=== PATIENT | male | born 1930 | race Caucasian/White ===

== ENCOUNTER → 2018-02-20 | Outpatient (CLI) | payer MEDICARE, BC | LOC: M ONCR 12:34 | DX: C34.12 Malignant neoplasm of upper lobe, left bronchus or lung (principal) | CPT/HCPCS: G0463 ==

== ENCOUNTER 2018-02-26 09:42 | Outpatient (RCR) | payer MEDICARE, BC | END 2018-03-16 | LOC: M ONCR 09:42 | DX: C79.51 Secondary malignant neoplasm of bone (principal); C34.12 Malignant neoplasm of upper lobe, left bronchus or lung | CPT/HCPCS: 77307 ==

== ENCOUNTER → 2018-03-01 | Outpatient (CLI) | payer MEDICARE, BC ==
[~2018-03-01] MED LIST: PROHANCE 279.3MG/ML 15ML VIAL (A9576) As Ordered
[2018-03-01 09:41] LABS: HEMATOCRIT 35.8 % (42.0-52.0); HEMOGLOBIN 11.4 g/dl (13.5-17.5); MEAN CORPUSCULAR HEMOGLOBIN 28.3 pg (27.0-33.0); MEAN CORPUSCULAR HGB CONC 31.8 g/dl (32.0-36.5); MEAN CORPUSCULAR VOLUME 88.8 fl (80.0-96.0); PLATELET COUNT, AUTOMATED 240 10^3/uL (150-450); RED BLOOD COUNT 4.03 10^6/uL (4.30-6.10); RED CELL DISTRIBUTION WIDTH 16.9 % (11.5-14.5); WHITE BLOOD COUNT 8.9 10^3/uL (4.0-10.0)
[2018-03-01 10:01] LABS: BLOOD UREA NITROGEN 14 MG/DL (7-18)
[2018-03-01 10:01] LABS: CREATININE FOR GFR 0.81 MG/DL (0.70-1.30); GLOMERULAR FILTRATION RATE > 60.0 (>35)
== END ==
LOC: M LAB 08:56
DX: C34.90 Malignant neoplasm of unspecified part of unspecified bronchus or lung (principal); Z88.0 Allergy status to penicillin; Z88.1 Allergy status to other antibiotic agents; R93.0 Abnormal findings on diagnostic imaging of skull and head, not elsewhere classified
CPT/HCPCS: A9576

== ENCOUNTER 2018-03-20 10:13 | Outpatient (RCR) | payer MEDICARE, BC ==
[2018-02-21 15:31] VITALS: BP 115/69
--- NOTE | 2018-02-26 07:24 | MEDONC ---
NEW PATIENT VISIT DATE OF SERVICE: 02/21/2018 REASON FOR REFERRAL: Metastatic lung adenocarcinoma with left lung biopsy 01/2018 showing adenocarcinoma. PET scan from 02/2018 showing left upper lobe lung mass with mediastinal adenopathy and metastatic disease to the left hip. HISTORY OF PRESENT ILLNESS: Mr. Infante is an 87-year-old man who was having increasing shortness of breath and was admitted to [facility] for cardiac workup. A CT angiography study showed large mass in the anterior left lung suspicious for malignancy. There was also note of left hilar and mediastinal adenopathy. He had a left lung biopsy with pathology showing adenocarcinoma. He had a PET scan recently which showed metastatic disease to the left hip. He was referred to medical oncology for the above. He had an appointment with Dr. Blackman of radiation oncology yesterday and he was offered radiation therapy to his left hip. Symptomwise, Mr. Infante does not feel well. He has lost 20 to 25 pounds over the past two months after being treated for pneumonia. He reports no eye sight changes. He has soreness on the left side of his chest, particularly with increased breathing. He also has left hip pain at times for which he takes Tylenol once or twice a day. He has had difficulty swallowing with food sticking on the way down his throat. No urinary problems. No headaches. No dizziness. He has had regular bowel movements. PAST MEDICAL HISTORY: 1. Coronary artery disease. 2. Hypertension. PAST SURGICAL HISTORY: 1. Removal of right eye metal fragment. 2. In 1970, removal of right eye. 3. In 1983, abdominal hernia repair. 4. In 1996, cardiac bypass surgery. 5. In October 1998, colostomy. 6. In February 1999, reversal of colostomy. 7. Balloon dilatation of bowel stricture in 1999. 8. Removal of abdominal adhesions in 2012. 9. Cataract surgery left eye in 2011. 10. Skin cancer removal December 2016. ALLERGIES: - CEPHALOSPORINS - PENICILLIN MEDICATIONS: - atorvastatin - digoxin - famotidine - metoprolol - tamsulosin FAMILY HISTORY: His father had colon cancer. Sister had liver cancer. Another sister had bone cancer. PERSONAL/SOCIAL HISTORY: He is and lives by himself. His children have been taking turns assisting him with his day to day activities. He has been the past two years. 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 He retired in 1994. He does not smoke. He used to smoke 35 years ago for 18-20 years up to 1 pack per day. He drinks alcoholic beverages occasionally. PHYSICAL EXAMINATION: He weighed 71.2 kg. Blood pressure 115/69. Heart rate 94 per minute. Oxygen saturation 94% on room air. Temperature 97.6. He had pinkish conjunctivae, anicteric sclerae. No oral mucosal lesions. No palpable cervical lymph nodes. Lungs fair air entry. No rales, no rhonchi, no wheeze. S1, S2, regular. Abdomen soft, nontender, no guarding. Positive bowel sounds. Extremities - No calf swelling, no calf tenderness, no pedal edema. Neurological Exam: Alert, oriented to time, place and person. Left eye reactive to light. Upper and lower extremity motor strength 5/5. IMPRESSION AND PLAN: Mr. Infante is an 87-year-old man with ECOG performance status of at least 2 who currently presents with metastatic lung adenocarcinoma with bone metastases. I discussed that this is an incurable condition. Ideally, treatment options include chemotherapy, immunotherapy or an anticancer oral medication if his lung cancer turns out to be positive for molecular markers such as EGFR, ALK or ROS1. However, I am worried about his performance status as he is [id number] and is quite frail. I discussed that he is not a candidate for chemotherapy. He has seen Dr. Blackman for radiation therapy to his left hip. He has decided to proceed with this. I discussed supportive care as a management option in light of his frail health. After a discussion, Mr. Infante wanted to know if he is a candidate for an oral anticancer treatment or immunotherapy. Will arrange for his cancer specimen to be tested for PD-L1, EGFR, ROS1 and ALK. Followup appointment after the above test results are completed. Thank you for this referral. Electronically Signed by Rea Murcia MD, FACP 03/02/2018 06:25 P DD: Rea Murcia MD, FACP 02/21/2018 06:06 P DT: ed 02/26/2018 07:07 A CC: MD Mati Lambert, DO
[~2018-03-20] VITALS: Ht 167.6 cm; Wt 69.7 kg
[~2018-03-20 10:13] MED LIST changes: +ASPI1TAB PO; +BESI0.6S OP; +DIGO0.12 PO; +FAMO40TA3 PO; +GATIFLOXACIN; +LIPI20TA PO; +METO1TAB87 PO; +METO25TAB PO; -PROHANCE 279.3MG/ML 15ML VIAL (A9576) As Ordered; +TAMS1CAP17 PO; +ZOFR8TAB24 PO
[2018-03-20 11:17] LABS: HEMATOCRIT 33.6 % (37.0-51.0); HEMOGLOBIN 10.6 g/dl (12.0-18.0); LYMPH % 12.5 % (10.0-58.5); MEAN CORPUSCULAR HEMOGLOBIN 27.8 pg (26.0-32.0); MEAN CORPUSCULAR HGB CONC 31.5 g/dl (31.0-36.0); MEAN CORPUSCULAR VOLUME 88.1 fl (80.0-97.0); NEUTROPHILS # 7.2 10^3/uL (2.0-7.8); NEUTROPHILS % 79.6 % (37.0-92.0); RED BLOOD COUNT 3.81 10^6/uL (4.2-6.3)
[2018-03-20 11:26] LABS: INR 1.15; PARTIAL THROMBOPLASTIN TIME 31.5 SECONDS (25.4-37.6); PROTHROMBIN TIME 14.8 SECONDS (12.1-14.4)
[2018-03-20 11:49] VITALS: BP 107/61
[2018-03-20 13:39] LABS: BLOOD UREA NITROGEN 14 MG/DL (6-20); CALCIUM LEVEL 8.6 MG/DL (8.5-10.2); CARBON DIOXIDE LEVEL 28 MEQ/L (23-31); CHLORIDE LEVEL 100 MMOL/L (98-107); CREATININE FOR GFR 0.83 MG/DL (0.90-1.30); GLUCOSE, FASTING 101 MG/DL (70-105); POTASSIUM SERUM 4.4 MMOL/L (3.5-5.1); SODIUM LEVEL 132 MMOL/L (136-145); TOTAL PROTEIN 5.9 GM/DL (6.4-8.3)
[2018-03-20 13:40] LABS: GLOMERULAR FILTRATION RATE > 60.0 (>35)
--- NOTE | 2018-03-22 11:00 | MEDONC ---
REVIEW PATIENT FOLLOWUP DATE OF SERVICE: 03/20/2018 DIAGNOSIS: Metastatic lung adenocarcinoma with left lung biopsy 01/2018 showing adenocarcinoma. PET scan from 02/2018 showing left upper lobe lung mass with mediastinal adenopathy and metastatic disease to the left hip. HISTORY OF PRESENT ILLNESS: Mr. Infante is currently completing radiation therapy to his left hip under Dr. Blackman. He reports a good appetite. He has been losing weight. He is tired all the time and mostly takes rest during the day. He is able to go to the bathroom on his down and also feed himself. At night he sleeps 2-4 hours and wakes up afterwards and sleeps again. He is taking naps very often during the day. He reports no headaches. No dizziness. No vision changes. He had chest pains up to 2-3 days ago, but none since 2-3 days ago. He also continues to have shortness of breath. No cough. He has had nausea for which he takes ondansetron. He continues to have left hip pain with no other bone pains. He has had regular bowel movements. No easy bruising. No rectal bleeding. No urinary bleeding. No epistaxis and no peripheral edema. ECOG PS=3. On physical exam, he weighed 69.7 kilograms. Temperature 97 degrees Fahrenheit. Heart rate 80 per minute. Blood pressure 107/61. Oxygen saturation 91% on room air. He had pinkish conjunctivae, anicteric sclerae. No oral mucosal lesions. No palpable cervical nodes. Lungs fair air entry. No rales, rhonchi, or wheeze. S1, S2 regular. Abdomen was soft, nontender. No guarding. Extremities-No calf swelling, no calf tenderness, and no pedal edema. IMPRESSION AND PLAN: Mr. Infante is currently on radiation therapy to his hip for a metastatic lung cancer. He was here today for a discussion on molecular marker testing results. I discussed that the ROS1 and ALK testing came back negative. His EGFR testing is still pending at this time and we do not have the results of his PD-L1 testing at this time. I discussed that with his frail health, he would not be a candidate to receive chemotherapy. I also discussed that if his PD-L1 came back with a tumor proportion score greater than 50% he would be a candidate for immunotherapy, however, he is of frail health and he may not derive a significant benefit from this as he could run into significant toxicities. I discussed that if his EGFR mutation should come back positive, patients who have EGFR mutation may benefit even with suboptimal performance status. Another option would be purely supportive care and referral to hospice care. Mr. Infante and his daughter informed me that Mr. Infante is moving to [place] to live with his other daughter. They have requested that his records be forwarded to a primary care physician in [place], Dr. Alegre. We will not arrange a followup appointment for him at this time. Electronically Signed by Rea Murcia MD, FACP 04/04/2018 04:49 P DD: Rea Murcia MD, FACP 03/20/2018 05:38 P DT: burak 03/22/2018 10:26 A CC: MD Mati Ramirez, DO
--- NOTE | 2018-04-04 16:54 | MEDONCTEEN ---
Date/Time of Encounter Date of Encounter: Apr 04, 2018 Time of Encounter: 16:51 Telephone Encounter PDL-1 testing came back with TPS50%, EGFR negative. Results discussed with Khloe, patient's daughter. Mr Infante would be a candidate to receive immunotherapy. However, Khloe informed me that Mr. Infante's clinical status has deteriorated significantly since moving to [place]. He is currently on hospice care at home. Treatment is not recommended at this time. DIONNA VIERA MD Apr 04, 2018 16:54
== END 2018-03-20 12:52 | disposition home or self-care (01) ==
LOC: M ONCM 10:13
PROVIDERS: ATTEND Internal Medicine Medical Oncology
DX: C34.92 Malignant neoplasm of unspecified part of left bronchus or lung (principal); C79.89 Secondary malignant neoplasm of other specified sites; I10 Essential (primary) hypertension; I25.10 Atherosclerotic heart disease of native coronary artery without angina pectoris; Z88.0 Allergy status to penicillin; Z88.1 Allergy status to other antibiotic agents; Z79.899 Other long term (current) drug therapy; Z80.0 Family history of malignant neoplasm of digestive organs; Z87.891 Personal history of nicotine dependence
CPT/HCPCS: 36415; 80053; 85027; 85610; 85730; G0463

== ENCOUNTER 2018-03-21 09:43 | Outpatient (RCR) | payer MEDICARE, BC ==
--- NOTE | 2018-03-23 10:21 | RADONC ---
RADIATION ONCOLOGY TREATMENT SUMMARY DATE: 03/21/2018 CHART NUMBER: [id number] DIAGNOSIS: Left upper lobe lung cancer. STAGE: IV, metastatic. ECOG PERFORMANCE STATUS: 1 TREATMENT SUMMARY: Mr. Infante is a very pleasant 87-year-old white male with the diagnosis of metastatic adenocarcinoma of the left upper lobe who presented to us for consideration of palliative radiation therapy to his left hip. We treated the patient to his left hip for a total dose of 3000 cGy delivered in 10 fractions of 300 cGy each over 16 elapsed days from 03/05/2018 through 03/21/2018. The patient's left hip was treated on the linear accelerator utilizing a 15 MV photon beam via anterior and posterior parallel opposed emery. Mr. Infante tolerated his treatments quite well although he did have some nausea throughout the course of treatment. The patient is moving to [place] and is leaving in two days or so. In light of this, I have discharged him from our followup except on a p.r.n. basis. We will be glad to forward his medical records to his treating physicians in [place] once he establishes contact with them. cc: Rea Murcia MD, FACP Mati Alvarez, DO
== END 2018-04-16 ==
LOC: M ONCR 09:43
PROVIDERS: ATTEND Radiology Radiation Oncology
DX: C79.51 Secondary malignant neoplasm of bone (principal); C34.12 Malignant neoplasm of upper lobe, left bronchus or lung